=== PATIENT | female | born 1990 | race Caucasian/White ===

== ENCOUNTER 2022-09-30 11:56 | Emergency (ER) | payer BC, OTHER ==
[~2022-09-30] VITALS: Ht 165.1 cm; Wt 98.4 kg
--- NOTE | 2022-09-30 12:00 | NUR ---
BIBS C/O LEFT FLANK AND LOWER QUADRANT PAIN, ON BACTRIM X 6 DAYS FOR "KIDNEY" INFECTION.
[2022-09-30 12:07] VITALS: BP 156/77
--- NOTE | 2022-09-30 12:19 | NUR ---
URINE SAMPLE SENT TO LAB
--- NOTE | 2022-09-30 12:34 | NUR ---
DR STAHL AT BEDSIDE
[2022-09-30] MEDS ORDERED: ONDANSETRON HCL/PF 4 MG/2 ML VIAL ONE (12:46)
[2022-09-30] MEDS ORDERED: MORPHINE SULFATE INJ 4 MG/ML DISP.SYRIN ONE ×2 (12:46→20:07)
[2022-09-30 12:54] LABS: BILIRUBIN,URINE 1+ (NEGATIVE); COLOR,URINE YELLOW (YELLOW); LEUKOCYTE ESTERASE ,URINE NEGATIVE (NEGATIVE); NITRITE, URINE NEGATIVE (NEGATIVE); PROTEIN,URINE NEGATIVE (NEGATIVE); UGLUCOSE NEGATIVE (NEGATIVE); UROBILINOGEN,URINE 0.2 EU/dL (0.2)
[2022-09-30] MEDS ORDERED: MORPHINE SULFATE INJ 2 MG/ML DISP.SYRIN IV ONE ×2 (13:00→20:00)
[2022-09-30] MEDS ORDERED: ONDANSETRON HCL/PF 4 MG/2 ML VIAL IVP ONE (13:00)
[2022-09-30] MEDS ORDERED: IV NS 0.9% 1,000 ML BAG IV ONE (13:00)
[2022-09-30 13:05] LABS: BACTERIA,URINE Moderate /HPF (None Seen); RBC,URINE 0-2 /HPF (0-2); SQUAMOUS EPITHELIAL CELL,UR Moderate /HPF (None Seen)
--- NOTE | 2022-09-30 13:10 | NUR ---
BLOOD DRAWN AND SENT TO LAB
[2022-09-30 13:12] LABS: BASOPHILS # (AUTO) 0.1 K/uL (0.0-0.2); EOSINOPHILS % (AUTO) 6.5 % (0.0-6.0); HEMATOCRIT 42 % (33-45); HEMOGLOBIN 13.4 g/dL (11.5-14.8); LYMPHOCYTES # (AUTO) 3.4 K/uL (0.8-4.8); LYMPHOCYTES % (AUTO) 43.9 % (20.0-44.0); MEAN CORPUSCULAR HGB CONC 32 g/dl (31.0-36.0); MEAN CORPUSCULAR VOLUME 86 fL (82-100); MONOCYTES # (AUTO) 0.7 K/uL (0.1-1.30); MONOCYTES % (AUTO) 8.6 % (2.0-12.0); NEUTROPHILS # (AUTO) 3.1 K/uL (1.8-8.9); PLATELET COUNT (AUTO) 342 K/uL (150-450); RED BLOOD CELL COUNT(AUTO) 4.89 MIL/uL (4.0-5.2); WHITE BLOOD COUNT (AUTO) 7.8 K/uL (4.3-11.0)
[2022-09-30 15:09] LABS: ALBUMIN 3.6 g/dL (3.4-5.0); BILIRUBIN,DIRECT 0.1 mg/dL (0.0-0.2); BILIRUBIN,TOTAL 0.3 mg/dL (0.2-1.0); CALCIUM, SERUM 8.8 mg/dL (8.5-10.1); CREATININE 1.1 mg/dL (0.6-1.3); POTASSIUM 3.5 mmol/L (3.5-5.1); TOTAL PROTEIN, SERUM 7.4 g/dL (6.4-8.2)
[2022-09-30] MEDS ORDERED: CEPH500C2 PO (17:28)
[2022-09-30] MEDS ORDERED: CYCL10TA9 PO (17:28)
[2022-09-30] MEDS ORDERED: IBUP-1955 PO (17:28)
--- NOTE | 2022-09-30 20:28 | NUR ---
Patient eloped from facility. ER MD notified.
--- NOTE | 2022-09-30 20:28 | NUR ---
Patient eloped from facility. ER MD notified.
== END 2022-09-30 20:23 | disposition left against medical advice (07) ==
LOC: ER 12:24
DX: R10.32 Left lower quadrant pain (principal); N39.0 Urinary tract infection, site not specified; F32.A Depression, unspecified; Z88.1 Allergy status to other antibiotic agents
CPT/HCPCS: 99284; 74176; 96374; 96361; 96375; 96376; 85025; 80048; 87086; 83690; 80076; 84703; 81001; 36415; J2270 ×2; J2405